=== PATIENT | female | born 1990 | race African-American/Black ===

== ENCOUNTER 2018-01-24 15:26 | Emergency (ER) | payer OTHER ==
[2018-01-24 15:46] VITALS: BP 109/65
== END 2018-01-25 01:30 | disposition left against medical advice (07) ==
LOC: ED 15:26
DX: Z04.1 Encounter for examination and observation following transport accident (principal); Z53.21 Procedure and treatment not carried out due to patient leaving prior to being seen by health care provider; V89.2XXA Person injured in unspecified motor-vehicle accident, traffic, initial encounter; Y93.89 Activity, other specified; Y99.8 Other external cause status; Y92.410 Unspecified street and highway as the place of occurrence of the external cause